=== PATIENT | male | born 1985 | race Caucasian/White ===

== ENCOUNTER 2024-08-03 09:01 | Emergency (ER) | payer OTHER, SELFPAY ==
[2024-08-03 09:03] VITALS: BP 138/76
--- NOTE | 2024-08-03 10:13 | ED.GENMED ---
History of Present Illness
General
Chief Complaint: Crisis Evaluation
Source: patient
Time Seen by Provider: 08/03/24 10:07
History of Present Illness
History of Present Illness:
38-year-old male with history of depression presents with request Shruthi Hedrick. Has been dealing with more depression lately. He is not suicidal homicidal. Denies hallucinations. He was started on Lexapro, Risperdal and Depakote 1 month ago by
Shruthi Hedrick. He states his depression is not significantly improved. He denies chest pain nausea vomiting or shortness of breath. He denies any rash. No other complaints
Phy Exam
Physical Exam
Physical Exam:
General: Well-appearing male calm and cooperative no acute respiratory distress
HEENT normocephalic atraumatic
Heart: Regular rate and rhythm
Lungs: Clear no wheeze
Extremities: No cyanosis
Psychiatric exam: Alert calm cooperative he is denying homicidal or suicidal thoughts. He is denying hallucinations has a good thought process.
Course
Vital Signs
Initial and Last Documented VS:
Initial Vital Signs
Temp Pulse Resp BP Pulse Ox
97.5 F 70 16 138/76 100
08/03/24 09:03 08/03/24 09:03 08/03/24 09:03 08/03/24 09:03 08/03/24 09:03
Last Documented Vital Signs
Temp Pulse Resp BP Pulse Ox
97.5 F 70 16 138/76 100
08/03/24 09:03 08/03/24 09:03 08/03/24 09:03 08/03/24 09:03 08/03/24 09:03
MDM/Problems Addressed
Differential Diagnosis Includes:
Patient here with complaints of depression but no signs of imminent danger of suicidality homicidality. Vital signs are stable. He was interested in speaking with Shruthi Hedrick. He will be discharged from the emergency room and sent to the crisis
department.
*Critical Care Note
Total Time (30-74mins, 75-104mins- exclusive of procedures): Not Applicable
ED Attending Note
-
Portions of this chart may have been created with voice recognition software.� Occasional wrong word or��sound alike� substitutions may have occurred due to the inherent limitations of voice recognition software.
Discharge Plan
Departure
Patient Disposition: [facility] Crisis
Date of Disposition: 08/03/24
Time of Disposition: 10:15
Discharge Problem:
Depression
Instructions: Depression, Adult (DC)
Prescriptions:
No Action
pantoprazole [Protonix] 20 mg tablet,delayed release (DR/EC)
20 mg PO DAILY Qty: 14 0RF
ondansetron 4 mg tablet,disintegrating
4 mg PO Q8H PRN (Reason: nausea and vomiting) Qty: 7 0RF
Activity Restrictions/Additional Instructions:
Please go to [facility] for further evaluation peer return here if needed
Interventions
Interventions:
*Risk Screen - Suicide Last Done: 08/03/24 09:03
*General Assessment Last Done: 08/03/24 09:05
Discharge Date and Time
Print Language: ITALIAN
== END 2024-08-03 12:00 ==
LOC: EMR 09:01
PROVIDERS: EMERGENCY PHYSICIAN Emergency Medicine; FAMILY PHYSICIAN Internal Medicine
DX: F32.A Depression, unspecified (principal); Z88.0 Allergy status to penicillin
CPT/HCPCS: 99283